=== PATIENT | female | born 1945 | race Caucasian/White ===

== ENCOUNTER → 2016-07-17 | Outpatient (CLI) | payer BC ==
[~2016-07-17] MED LIST: ESCI1TAB6 PO; MXZUNK
== END | disposition home or self-care (01) ==
LOC: C.LAB 14:54
PROVIDERS: ATTEND Family Medicine
DX: E03.9 Hypothyroidism, unspecified (principal)

== ENCOUNTER → 2016-12-22 | Outpatient (CLI) | payer BC ==
--- NOTE | 2016-12-22 13:32 | DIAGNOSTIC IMAGING REPORT ---
CHEST 2 VIEWS ROUTINE CLINICAL HISTORY: Shortness of breath. Chest pain. COMPARISON STUDY: Chest CT March 27, 2014 and chest radiograph December 11, 2015. FINDINGS: Postsurgical findings within the left lung are noted. There are lower cervical surgical clips. No pneumothorax or pleural effusion is present. Cardiomediastinal silhouette is stable. There is no consolidation to suggest pneumonia. Pulmonary vascularity is normal. The appearance of the chest is unchanged. IMPRESSION: No acute cardiopulmonary findings. Electronically signed by: Colt Woodard M.D. 12/22/2016 1:31 PM Dictated Date/Time: 12/22/2016 1:28 PM
== END | disposition home or self-care (01) ==
LOC: C.RADBC 13:12
PROVIDERS: ATTEND Family Medicine
DX: R06.02 Shortness of breath (principal); R07.9 Chest pain, unspecified

== ENCOUNTER → 2017-01-18 | Outpatient (CLI) | payer BC | END | disposition home or self-care (01) | LOC: C.LAB 12:07 | PROVIDERS: ATTEND Family Medicine | DX: E03.9 Hypothyroidism, unspecified (principal) ==

== ENCOUNTER → 2017-02-25 | Outpatient (CLI) | payer BC | END | disposition home or self-care (01) | LOC: C.MAMM 14:01 | PROVIDERS: ATTEND Family Medicine | DX: M81.0 Age-related osteoporosis without current pathological fracture (principal); M85.88 Other specified disorders of bone density and structure, other site ==

== ENCOUNTER → 2017-03-10 | Outpatient (CLI) | payer BC ==
--- NOTE | 2017-03-11 12:45 | MAMMOGRAPHY REPORT ---
BILATERAL DIGITAL SCREENING MAMMOGRAM TOMOSYNTHESIS WITH CAD: 03/10/2017 CLINICAL HISTORY: Routine screening. TECHNIQUE: Breast tomosynthesis in addition to standard 2D mammography was performed. Current study was also evaluated with a Computer Aided Detection (CAD) system. COMPARISON: Comparison is made to exams dated: 12/24/2015 mammogram, 07/04/2014 mammogram, 01/05/2013 mammogram, 07/19/2014 mammogram, 04/24/2015 mammogram, and 04/21/2005 mammogram - [facility]. BREAST COMPOSITION: There are scattered areas of fibroglandular density in both breasts. FINDINGS: There is a 4.9 mm nodular asymmetry in the slightly medial anterior left breast, best seen on CC tomosynthesis slice 41/63. Although this could represent normal overlapping fibrolandular tis naga, additional spot compression tomosynthesis views and possible ultrasound are recommended. The grouping of smooth coarse calcifications measuring 10 mm in the 12:00 to 1:00 posterior right jacob ast appears stable mammographically dating back to at least 04/24/2015 and can be reassessed at time of next annual mammogram. No other suspicious mass, architectural distortion or cluster of microcalci fications is seen. IMPRESSION: ACR BI-RADS CATEGORY 0: INCOMPLETE EVALUATION: NEED ADDITIONAL IMAGING EVALUATION 1. The 4.9 mm nodular asymmetry in the slightly lateral anterior left breast needs additional imagin g evaluation. 2. Stable grouping of coarse heterogeneous microcalcifications in the 12:00 to 1:00 posterior right breast. The patient will be called to schedule an appointment. Approximately 10% of breast cancers are not detected with mammography. A negative mammographic report should not delay biopsy if a clinically suggestive mass is present. Carley Rosas M.D. ay/:03/10/2017 15:22:34 Mail Sorter And Delivery: Nalini BARTHOLOMEW([place])(Es), [facility] letter sent: Addl Imaging 0 BI-RADS Code: ACR BI-RADS Category 0: Incomplete Evaluation: Need Additional Imaging Evaluation
== END | disposition home or self-care (01) ==
LOC: C.MAMM 13:46
PROVIDERS: ATTEND Family Medicine
DX: Z12.31 Encounter for screening mammogram for malignant neoplasm of breast (principal)

== ENCOUNTER → 2017-03-24 | Outpatient (CLI) | payer BC ==
--- NOTE | 2017-03-24 15:10 | MAMMOGRAPHY REPORT ---
UNILATERAL LEFT DIGITAL DIAGNOSTIC MAMMOGRAM TOMOSYNTHESIS: 03/24/2017 CLINICAL HISTORY: Callback from screening mammogram for left breast asymmetry. TECHNIQUE: Breast tomosynthesis in addition to standard 2D mammography was performed. Spot compress ion left CC and MLO 2-D and tomosynthesis images were obtained. COMPARISON: Comparison is made to exams dated: 03/10/2017 mammogram, 12/24/2015 mammogram, 07/04/2014 m ammogram, 01/05/2013 mammogram, 04/21/2005 mammogram, and 02/27/2004 mammogram - [facility]. BREAST COMPOSITION: There are scattered areas of fibroglandular density in the left breast. FINDINGS: The previously described nodular asymmetry seen within the left lateral anterior breast on the cc view effaces to a baseline appearance on the additional spot compression views, and has the ap pearance of normal fibroglandular tissue on the tomosynthesis images. The finding is benign and comp atible with normal fibroglandular tissue. There are no suspicious masses, calcifications, or areas o f architectural distortion noted on the additional views. IMPRESSION: ACR BI-RADS CATEGORY 2: BENIGN The left breast asymmetry effaces on the additional views, and is benign and compatible with normal f ibroglandular tissue. There is no mammographic evidence of malignancy. A 1 year screening mammogram is recommended. The patient has been verbally notified of the results. Approximately 10% of breast cancers are not detected with mammography. A negative mammographic report should not delay biopsy if a clinically suggestive mass is present. Ofelia Cuba M.D. ah/:03/24/2017 13:40:17 Language Interpreter: Nalini BARTHOLOMEW([place])(M), [facility] letter sent: Normal 1/2 BI-RADS Code: ACR BI-RADS Category 2: Benign
== END | disposition home or self-care (01) ==
LOC: C.MAMM 13:08
PROVIDERS: ATTEND Family Medicine
DX: R92.2 Inconclusive mammogram (principal)

== ENCOUNTER → 2017-07-29 | Outpatient (CLI) | payer BC | END | disposition home or self-care (01) | LOC: C.LAB 15:04 | PROVIDERS: ATTEND Family Medicine | DX: E55.9 Vitamin D deficiency, unspecified (principal); E03.9 Hypothyroidism, unspecified ==

== ENCOUNTER 2018-12-14 16:27 | Observation (INO) ==
--- NOTE | 2018-12-14 17:25 | XRay Report ---
XR chest 1V portable CLINICAL HISTORY: 73 years-old Female presenting with weakness. TECHNIQUE: Portable upright AP view of the chest was obtained. COMPARISON: 08/08/2018. FINDINGS: Atherosclerosis of the aortic arch. Cardiac silhouette mildly enlarged. Suture margin is projected ov er the left mid lung. Lungs are mildly hyperinflated. No new focal opacity. No pleural effusion or pn eumothorax. Osteopenia may be present. Upper abdomen normal. IMPRESSION: 1. Mild cardiomegaly. 2. Postsurgical changes of the right midlung. 3. Possible underlying emphysema. No focal infiltrate to suggest pneumonia. Electronically signed by: Carlos Gant M.D. 12/14/2018 5:24 PM
[2018-12-14 17:39] LABS: Basophils # (auto) 0.03 K/uL (0-0.2); Basophils % (auto) 0.4 %; Eosinophils # (auto) 0.05 K/uL (0-0.5); Eosinophils % (auto) 0.6 %; Hematocrit (blood only) 42.3 % (37-47); Hemoglobin 14.4 g/dL (12.0-16.0); Immature Granulocytes # (auto) 0.02 K/uL (0.00-0.02); Immature Granulocytes % (auto) 0.2 %; Lymphocytes # (auto) 2.44 K/uL (1.2-3.4); Lymphocytes % (auto) 30.1 %; Mean Corpuscular Hemoglobin 29.3 pg (25-34); Mean Platelet Volume 9.6 fL (7.4-10.4); Monocytes # (auto) 0.64 K/uL (0.11-0.59); Monocytes % (auto) 7.9 %; Neutrophils # (auto) 4.92 K/uL (1.4-6.5); Neutrophils % (auto) 60.8 %; Platelet Count 357 K/uL (130-400); RDW Coefficient of Variation 13.7 % (11.5-14.5); RDW Standard Deviation 43.1 fL (36.4-46.3); Red Blood Count 4.92 M/uL (4.2-5.4)
--- NOTE | 2018-12-14 17:44 | CT Scan Report ---
CT head/brain wo con CLINICAL HISTORY: 73 years-old Female presenting with aphasia, transient. TECHNIQUE: Multidetector CT imaging of the head was performed without the use of intravenous contrast . IV contrast: None. One or more dose lowering techniques were used consistent with the principles of ALARA (as low as reasonably achievable), including automatic exposure control, mA or kV adjustment t o individual patient size, and/or use of iterative reconstruction. COMPARISON: Brain MR from 2011. CT DOSE (mGy.cm): The estimated cumulative dose is 537.48 mGy.cm. FINDINGS: Raised Printer topogram: Unremarkable. Ventricles and sulci normal in size. No hemorrhage. Periventricular and subcortical white matter hypo attenuation, nonspecific but likely indicative of chronic small vessel ischemic change. No acute terr itorial infarct. No mass effect or midline shift. No extra-axial fluid collection. Paranasal sinuses and mastoid air cells clear. Calvarium intact. IMPRESSION: 1. Chronic small vessel ischemic change. No acute intracranial abnormality. These findings were discussed with charge nurse by Dr. Gant on 12/14/2018 5:43 PM. Electronically signed by: Carlos Gant M.D. 12/14/2018 5:43 PM
[2018-12-14 17:54] LABS: Partial Thromboplastin Ratio 1.2; Partial Thromboplastin Time 32.1 Seconds (21.0-31.0); Prothrombin Time 10.3 Seconds (9.0-12.0)
[2018-12-14 17:55] LABS: Alanine Aminotransferase 16 U/L (12-78); Albumin Level 4.1 gm/dl (3.4-5.0); Aspartate Aminotransferase 11 U/L (15-37); BUN Creatinine Ratio 15.4 (10-20); Blood Urea Nitrogen 17 mg/dl (7-18); Calcium 8.5 mg/dl (8.5-10.1); Carbon Dioxide 30 mmol/L (21-32); Chloride 100 mmol/L (98-107); Creatinine Clr Calc Pharmacy 43.4 ml/min; Est GFR (African American) 55.1; Est GFR (Non-African American) 47.5; Glucose 107 mg/dl (70-99); Magnesium 2.4 mg/dl (1.8-2.4); Potassium 3.2 mmol/L (3.5-5.1); Sodium 136 mmol/L (136-145)
[2018-12-14 18:00] LABS: Albumin Globulin Ratio 1.1 (0.9-2); Alkaline Phosphatase 56 U/L (45-117); Bilirubin,Total 0.4 mg/dl (0.2-1); Globulin 3.8 gm/dl (2.5-4.0); Total Protein 7.9 gm/dl (6.4-8.2); Troponin I < 0.015 ng/ml (0-0.045)
[2018-12-14 18:05] LABS: iSTAT Creatinine 1.1 mg/dl (0.6-1.3); iSTAT Ionized Calcium 1.01 mmol/l (1.12-1.32); iSTAT Potassium 3.2 mEq/L (3.3-5.0)
[2018-12-14] MEDS ORDERED: CLOPIDOGREL BISULFATE 300 MG TAB PO STA (18:10)
[2018-12-14 18:15] LABS: Appearance Urine Cloudy (Clear); Bacteria Urine Automated Negative (Negative); Bilirubin Urine Negative (Negative); Blood Urine Negative (Negative); Color Urine Dark Yellow; Epithelial Cell Urine Auto >30 /lpf (0-5); Glucose Urine UA Negative (Negative); Ketones Urine Trace (Negative); Leukocyte Esterase Urine Negative (Negative); Nitrite Urine Negative (Negative); Protein Urine 1+ (Negative); Specific Gravity Urine 1.032 (1.000-1.030); Urobilinogen Urine Negative (Negative); pH Urine 5.5 (4.5-7.5)
[2018-12-14] MEDS: SODIUM CHLORIDE 0.9% 1000ML 1,000 ML IV SCH (18:25)
[2018-12-14 18:28] LABS: Cast Urine Automated >30 /lpf (0-5)
[2018-12-14 18:29] LABS: Renal Epithelial Cells Urine 0-5 /lpf (0-5)
[2018-12-14] MEDS ORDERED: HydrALAZINE HCL 20 MG/ML VIAL IV ONE (18:42)
--- NOTE | 2018-12-14 19:05 | Emergency Department Note ---
Entered by Nati Perales acting as a scribe for History of Present Illness General Chief complaint: Neuro Symptoms/Deficit Stated complaint: SLURRED SPEECH Source: patient History of Present Illness Onset (ago): hour(s) (1 hour and 15 minutes) Location: head Pain Consistency: + other (episode) Quality: + other (neurological symptoms) Relieved By: + medication (Aspirin) Associated symptoms: + denies other symptoms (dizziness, vision changes, difficulty walking, cold symptoms, trouble moving, numbness, facial droop, trouble swallowing) and + other (slurred speech, slow speech, dry mouth); no chest pain, no fever/chills (fever), no headaches, no shortness of breath and no weakness The patient is a 73 year old female who presents to the Emergency Room with complaints of an episode of neurological symptoms starting an hour and 15 minutes ago. The patient states that this afternoon she had gone and visited with friends. She states that she was fine there and when driving home, stopped at [employer] to worm picker a few things. She reports that she was fine until she got home and her daughter came over to pick her up to go somewhere. She states that once her daughter got there, she didnt feel quite herself. She reports that this was at 3:30. She states that she the noticed she could understand what her daughter was saying, but was unable to formulate what she wanted to say easily. She reports that her speech was slurred and slow. She states that the episode lasted 15 minutes and disappeared. She notes that she took a full strength Aspirin and then came in. She notes that she still feels a little off, but her symptoms have not returned. The patient notes that she was taking medications for a UTI that she started 2 weeks ago and finished 3 days ago, but notes that she no longer has any urinary symptoms. The patient complains of a dry mouth, but notes that she had 3 of her 4 parotid glands removed a long time ago when they thought she had cancer. She notes that she used to be on blood pressure medications, but it was good so they took her off of them. The patient denies recent travel, headache, dizziness, vision changes, difficulty walking, fever, cold symptoms, trouble moving, weakness, numbness, facial droop, trouble swallowing, chest pain, shortness of breath, and ever having this before. Home Medications Home Medications Medication Instructions Recorded Confirmed Type levothyroxine 88 mcg PO DAILY 12/14/18 12/14/18 History Allergies Allergy/AdvReac Type Severity Reaction Status Date / Time bacitracin Allergy Unknown FROM Verified 12/14/18 18:23 NEOSPORIN Iodinated Contrast Media Allergy Unknown CT DYE Verified 12/14/18 18:23 iodine Allergy Unknown UNKNOWN Verified 12/14/18 18:23 neomycin Allergy Unknown UNKNOWN Verified 12/14/18 18:23 polymyxin B Allergy Unknown UNKNOWN Verified 12/14/18 18:23 Past Med/Surg History Medical History Collapsed lung HTN (hypertension) Surgical History History of parotid gland removal Family History Other Family history non-contributory Social History Preferred Language: Croatian marital status: / Feels Safe at Home: Yes Smoking Status: Never smoker Review of Systems See HPI for pertinent positives & negatives. and A total of 10 systems reviewed and were otherwise negative Physical Exam Vital Signs Vital Signs - 24 hr 12/14/18 16:30 12/14/18 17:32 12/14/18 17:33 Temperature 36.6 C Temperature Source Oral Sepsis Recent Fever Within 48 Hours No Sepsis New/Unexplained Change in Mental Status No Sepsis Action Taken by Nursing No Action Required Pulse Rate 75 Pulse Rate [Apical] 51 L Pulse Rate from SpO2 Sensor Respiratory Rate 18 14 Respiratory Effort / Characteristics Non-Labored Spontaneous Respiratory Depth Normal Blood Pressure 203/110 H Blood Pressure [Right Arm] 138/78 Blood Pressure Mean 141 Blood Pressure Mean [Right Arm] 98 Blood Pressure Position Sitting Pulse Oximetry 96 96 96 Oxygen Delivery Method Room Air Room Air 12/14/18 18:15 12/14/18 18:30 12/14/18 18:40 Temperature Temperature Source Sepsis Recent Fever Within 48 Hours Sepsis New/Unexplained Change in Mental Status Sepsis Action Taken by Nursing Pulse Rate 63 64 63 Pulse Rate [Apical] Pulse Rate from SpO2 Sensor 63 63 57 L Respiratory Rate 18 18 Respiratory Effort / Characteristics Respiratory Depth Blood Pressure 230/103 H 228/101 H Blood Pressure [Right Arm] Blood Pressure Mean 145 143 Blood Pressure Mean [Right Arm] Blood Pressure Position Pulse Oximetry 98 99 98 Oxygen Delivery Method 12/14/18 18:44 12/14/18 18:50 12/14/18 18:51 Temperature Temperature Source Sepsis Recent Fever Within 48 Hours Sepsis New/Unexplained Change in Mental Status Sepsis Action Taken by Nursing Pulse Rate 63 62 63 Pulse Rate [Apical] Pulse Rate from SpO2 Sensor 63 62 62 Respiratory Rate Respiratory Effort / Characteristics Respiratory Depth Blood Pressure 224/102 H 219/104 H Blood Pressure [Right Arm] Blood Pressure Mean 142 142 Blood Pressure Mean [Right Arm] Blood Pressure Position Pulse Oximetry 99 98 96 Oxygen Delivery Method GENERAL: Awake, alert, in no distress HENT: Normocephalic, atraumatic. Oropharynx unremarkable. EYES: Normal conjunctiva. Sclera non-icteric. PERRL. EOMI. NECK: Supple. No nuchal rigidity. RESPIRATORY: Clear to auscultation. Normal respiratory effort. CARDIAC: Normal rate. Normal rhythm. Extremities warm and well perfused. GI: Soft, non-distended. No tenderness to palpation. RECTAL: Deferred. MUSCULOSKELETAL: Atraumatic. Chest examination reveals no tenderness. LOWER EXTREMITIES: Calves are equal size bilaterally and non-tender. No edema NEURO: Normal sensorium. No sensory or motor deficits noted. No facial droop. No aphasia. No pronator drift. No finger to nose ataxia. Cranial nerves 2-10 are grossly intact. SKIN: Warm and dry. No rash or jaundice noted. Course 164: Past medical records reviewed. The patient was evaluated in room C11B. A complete history and physical exam was performed. 172: Nursing staff called and informed me that the patient is having an episode. I returned to the room and the patient has a right sided facial droop, aphasia, is pale, and is diaphoretic. I am calling a stroke alert at this time. 1729: I discussed the patient's case with Dr. Ian Carroll Neurology. He will evaluate the patient via telestroke. 1743: I reevaluated the patient and she is being evaluated by the telestroke. The patient is starting to have resolution of her symptoms. 1749: Per radiology, the patient's CT is normal. 1810: I discussed the patient's case with Dr. Ian Carroll Neurology at this time. He doesn't recommend TPA, but does recommend giving Aspirin and Plavix. He recommends admission for further evaluation. 1822: I discussed the patient's case with Dr. Elo TOWNSEND Hospitalist. She will evaluate the patient for further management. 1827: I reevaluated the patient and updated her and her family on her test results. I discussed the treatment plan with them. They verbally agree and understand. Administered Medications Sodium Chloride (Nss 1000ml) 1,000 mls @ 100 mls/hr IV .Q10H ANITA Stop: 01/13/19 18:14 Last Admin: 12/14/18 18:25 Dose: 100 mls/hr Documented by: [id number] Discontinued Medications Clopidogrel Bisulfate (Plavix) 300 mg PO NOW STA Stop: 12/14/18 18:11 Last Admin: 12/14/18 18:25 Dose: 300 mg Documented by: [id number] Hydralazine HCl (Hydralazine Hcl) 5 mg IV NOW ONE Stop: 12/14/18 18:43 Last Admin: 12/14/18 18:47 Dose: 5 mg Documented by: [id number] Medical Decision Making Differential Diagnosis Differential Diagnosis includes but is not limited to ischemic Stroke, hemorrhagic stroke, bells palsy, mass, neoplasm, migraine headache, seizure, subarachnoid hemorrhage, TIA, and transient global amnesia. Medical Records Attestation: I reviewed the patient's medical records. Home Medications Current Medication List: was personally reviewed by me Laboratory Data Attestation: I reviewed the patient's lab results. Result diagrams: 12/14/18 17:29 12/14/18 17:29 Lab Results 12/14/18 12/14/18 12/14/18 Range/Units 17:29 17:29 17:29 WBC 8.10 (4.8-10.8) K/uL RBC 4.92 (4.2-5.4) M/uL Hgb 14.4 (12.0-16.0) g/dL POC Hgb (12.0-16.0) g/dl Hct 42.3 (37-47) % POC Hct (37-47) % MCV 86.0 (80-100) fL MCH 29.3 (25-34) pg MCHC 34.0 (32-36) g/dL RDW Std Deviation 43.1 (36.4-46.3) fL RDW Coeff of Rudy 13.7 (11.5-14.5) % Plt Count 357 (130-400) K/uL MPV 9.6 (7.4-10.4) fL Immature Gran % (Auto) 0.2 % Neut % (Auto) 60.8 % Lymph % (Auto) 30.1 % Blanco % (Auto) 7.9 % Eos % (Auto) 0.6 % Baso % (Auto) 0.4 % Immature Gran # (Auto) 0.02 (0.00-0.02) K/uL Neut # (Auto) 4.92 (1.4-6.5) K/uL Lymph # (Auto) 2.44 (1.2-3.4) K/uL Blanco # (Auto) 0.64 H (0.11-0.59) K/uL Eos # (Auto) 0.05 (0-0.5) K/uL Baso # (Auto) 0.03 (0-0.2) K/uL PT 10.3 (9.0-12.0) Seconds INR 1.0 (0.9-1.1) APTT 32.1 H (21.0-31.0) Seconds PTT Ratio 1.2 POC Sodium (135-144) mEq/L Sodium 136 (136-145) mmol/L POC Potassium (3.3-5.0) mEq/L Potassium 3.2 L (3.5-5.1) mmol/L POC Chloride (101-112) mEq/L Chloride 100 (98-107) mmol/L Carbon Dioxide 30 (21-32) mmol/L POC Total CO2 (24-31) mEq/l Anion Gap 6.0 (3-11) POC Anion Gap (16-25) mmol/L POC BUN (7-18) mg/dl BUN 17 (7-18) mg/dl Creatinine 1.13 (0.6-1.2) mg/dl POC Creatinine (0.6-1.3) mg/dl Est Cr Clr Drug Dosing 43.4 ml/min Est GFR ( Amer) 55.1 Est GFR (Non-Af Amer) 47.5 BUN/Creatinine Ratio 15.4 (10-20) Glucose 107 H (70-99) mg/dl POC Glucose (70-99) POC Glucose (other) (70-99) mg/dl Calcium 8.5 (8.5-10.1) mg/dl POC Ioniz Calcium Sue (1.12-1.32) mmol/l Magnesium 2.4 (1.8-2.4) mg/dl Total Bilirubin 0.4 (0.2-1) mg/dl AST 11 L (15-37) U/L ALT 16 (12-78) U/L Alkaline Phosphatase 56 (45-117) U/L Troponin I < 0.015 (0-0.045) ng/ml Total Protein 7.9 (6.4-8.2) gm/dl Albumin 4.1 (3.4-5.0) gm/dl Globulin 3.8 (2.5-4.0) gm/dl Albumin/Globulin Ratio 1.1 (0.9-2) Urine Color Urine Appearance (Clear) Urine pH (4.5-7.5) Ur Specific Sinai (1.000-1.030) Urine Protein (Negative) Urine Glucose (UA) (Negative) Urine Ketones (Negative) Urine Blood (Negative) Urine Nitrite (Negative) Urine Bilirubin (Negative) Urine Urobilinogen (Negative) Ur Leukocyte Esterase (Negative) Urine WBC (Auto) (0-5) /hpf Urine RBC (Auto) (0-4) /hpf U Hyaline Cast (Auto) (0-5) /lpf U Epithel Cells (Auto) (0-5) /lpf Urine Bacteria (Auto) (Negative) Ur Renal Epithelial Cell (0-5) /lpf Granular Casts (0) /lpf Waxy Casts (0) /lpf Blood Type Antibody Screen 12/14/18 12/14/18 12/14/18 Range/Units 17:29 17:40 17:51 WBC (4.8-10.8) K/uL RBC (4.2-5.4) M/uL Hgb (12.0-16.0) g/dL POC Hgb 15.0 (12.0-16.0) g/dl Hct (37-47) % POC Hct 44 (37-47) % MCV (80-100) fL MCH (25-34) pg MCHC (32-36) g/dL RDW Std Deviation (36.4-46.3) fL RDW Coeff of Rudy (11.5-14.5) % Plt Count (130-400) K/uL MPV (7.4-10.4) fL Immature Gran % (Auto) % Neut % (Auto) % Lymph % (Auto) % Blanco % (Auto) % Eos % (Auto) % Baso % (Auto) % Immature Gran # (Auto) (0.00-0.02) K/uL Neut # (Auto) (1.4-6.5) K/uL Lymph # (Auto) (1.2-3.4) K/uL Blanco # (Auto) (0.11-0.59) K/uL Eos # (Auto) (0-0.5) K/uL Baso # (Auto) (0-0.2) K/uL PT (9.0-12.0) Seconds INR (0.9-1.1) APTT (21.0-31.0) Seconds PTT Ratio POC Sodium 139 (135-144) mEq/L Sodium (136-145) mmol/L POC Potassium 3.2 L (3.3-5.0) mEq/L Potassium (3.5-5.1) mmol/L POC Chloride 97 L (101-112) mEq/L Chloride (98-107) mmol/L Carbon Dioxide (21-32) mmol/L POC Total CO2 29 (24-31) mEq/l Anion Gap (3-11) POC Anion Gap 18.0 (16-25) mmol/L POC BUN 18 (7-18) mg/dl BUN (7-18) mg/dl Creatinine (0.6-1.2) mg/dl POC Creatinine 1.1 (0.6-1.3) mg/dl Est Cr Clr Drug Dosing ml/min Est GFR ( Amer) Est GFR (Non-Af Amer) BUN/Creatinine Ratio (10-20) Glucose (70-99) mg/dl POC Glucose (70-99) POC Glucose (other) 105 H (70-99) mg/dl Calcium (8.5-10.1) mg/dl POC Ioniz Calcium Sue 1.01 L (1.12-1.32) mmol/l Magnesium (1.8-2.4) mg/dl Total Bilirubin (0.2-1) mg/dl AST (15-37) U/L ALT (12-78) U/L Alkaline Phosphatase (45-117) U/L Troponin I (0-0.045) ng/ml Total Protein (6.4-8.2) gm/dl Albumin (3.4-5.0) gm/dl Globulin (2.5-4.0) gm/dl Albumin/Globulin Ratio (0.9-2) Urine Color Dark Yellow Urine Appearance Cloudy A (Clear) Urine pH 5.5 (4.5-7.5) Ur Specific Sinai 1.032 H (1.000-1.030) Urine Protein 1+ H (Negative) Urine Glucose (UA) Negative (Negative) Urine Ketones Trace H (Negative) Urine Blood Negative (Negative) Urine Nitrite Negative (Negative) Urine Bilirubin Negative (Negative) Urine Urobilinogen Negative (Negative) Ur Leukocyte Esterase Negative (Negative) Urine WBC (Auto) 5-10 H (0-5) /hpf Urine RBC (Auto) 10-30 H (0-4) /hpf U Hyaline Cast (Auto) >30 H (0-5) /lpf U Epithel Cells (Auto) >30 H (0-5) /lpf Urine Bacteria (Auto) Negative (Negative) Ur Renal Epithelial Cell 0-5 (0-5) /lpf Granular Casts 1-5 H (0) /lpf Waxy Casts 1-5 H (0) /lpf Blood Type O Positive Antibody Screen NEGATIVE 12/14/18 Range/Units 17:51 WBC (4.8-10.8) K/uL RBC (4.2-5.4) M/uL Hgb (12.0-16.0) g/dL POC Hgb (12.0-16.0) g/dl Hct (37-47) % POC Hct (37-47) % MCV (80-100) fL MCH (25-34) pg MCHC (32-36) g/dL RDW Std Deviation (36.4-46.3) fL RDW Coeff of Rudy (11.5-14.5) % Plt Count (130-400) K/uL MPV (7.4-10.4) fL Immature Gran % (Auto) % Neut % (Auto) % Lymph % (Auto) % Blanco % (Auto) % Eos % (Auto) % Baso % (Auto) % Immature Gran # (Auto) (0.00-0.02) K/uL Neut # (Auto) (1.4-6.5) K/uL Lymph # (Auto) (1.2-3.4) K/uL Blanco # (Auto) (0.11-0.59) K/uL Eos # (Auto) (0-0.5) K/uL Baso # (Auto) (0-0.2) K/uL PT (9.0-12.0) Seconds INR (0.9-1.1) APTT (21.0-31.0) Seconds PTT Ratio POC Sodium (135-144) mEq/L Sodium (136-145) mmol/L POC Potassium (3.3-5.0) mEq/L Potassium (3.5-5.1) mmol/L POC Chloride (101-112) mEq/L Chloride (98-107) mmol/L Carbon Dioxide (21-32) mmol/L POC Total CO2 (24-31) mEq/l Anion Gap (3-11) POC Anion Gap (16-25) mmol/L POC BUN (7-18) mg/dl BUN (7-18) mg/dl Creatinine (0.6-1.2) mg/dl POC Creatinine (0.6-1.3) mg/dl Est Cr Clr Drug Dosing ml/min Est GFR ( Amer) Est GFR (Non-Af Amer) BUN/Creatinine Ratio (10-20) Glucose (70-99) mg/dl POC Glucose 94 (70-99) POC Glucose (other) (70-99) mg/dl Calcium (8.5-10.1) mg/dl POC Ioniz Calcium Sue (1.12-1.32) mmol/l Magnesium (1.8-2.4) mg/dl Total Bilirubin (0.2-1) mg/dl AST (15-37) U/L ALT (12-78) U/L Alkaline Phosphatase (45-117) U/L Troponin I (0-0.045) ng/ml Total Protein (6.4-8.2) gm/dl Albumin (3.4-5.0) gm/dl Globulin (2.5-4.0) gm/dl Albumin/Globulin Ratio (0.9-2) Urine Color Urine Appearance (Clear) Urine pH (4.5-7.5) Ur Specific Sinai (1.000-1.030) Urine Protein (Negative) Urine Glucose (UA) (Negative) Urine Ketones (Negative) Urine Blood (Negative) Urine Nitrite (Negative) Urine Bilirubin (Negative) Urine Urobilinogen (Negative) Ur Leukocyte Esterase (Negative) Urine WBC (Auto) (0-5) /hpf Urine RBC (Auto) (0-4) /hpf U Hyaline Cast (Auto) (0-5) /lpf U Epithel Cells (Auto) (0-5) /lpf Urine Bacteria (Auto) (Negative) Ur Renal Epithelial Cell (0-5) /lpf Granular Casts (0) /lpf Waxy Casts (0) /lpf Blood Type Antibody Screen Imaging Data Radiologist's Impression: Radiology results as stated below per my review and the radiologist's interpretation: XR chest 1V portable CLINICAL HISTORY: 73 years-old Female presenting with weakness. TECHNIQUE: Portable upright AP view of the chest was obtained. COMPARISON: 08/08/2018. FINDINGS: Atherosclerosis of the aortic arch. Cardiac silhouette mildly enlarged. Suture margin is projected over the left mid lung. Lungs are mildly hyperinflated. No new focal opacity. No pleural effusion or pneumothorax. Osteopenia may be present. Upper abdomen normal. IMPRESSION: 1. Mild cardiomegaly. 2. Postsurgical changes of the right midlung. 3. Possible underlying emphysema. No focal infiltrate to suggest pneumonia. Electronically signed by: Carlos Gant M.D. 12/14/2018 5:[address] head/brain wo con CLINICAL HISTORY: 73 years-old Female presenting with aphasia, transient. TECHNIQUE: Multidetector CT imaging of the head was performed without the use of intravenous contrast. IV contrast: None. One or more dose lowering techniques were used consistent with the principles of ALARA (as low as reasonably achievable), including automatic exposure control, mA or kV adjustment to individual patient size, and/or use of iterative reconstruction. COMPARISON: Brain MR from 2011. CT DOSE (mGy.cm): The estimated cumulative dose is 537.48 mGy.cm. FINDINGS: He[employer] Setter topogram: Unremarkable. Ventricles and sulci normal in size. No hemorrhage. Periventricular and subcortical white matter hypoattenuation, nonspecific but likely indicative of chronic small vessel ischemic change. No acute territorial infarct. No mass effect or midline shift. No extra-axial fluid collection. Paranasal sinuses and mastoid air cells clear. Calvarium intact. IMPRESSION: 1. Chronic small vessel ischemic change. No acute intracranial abnormality. These findings were discussed with charge nurse by Dr. Gant on 12/14/2018 5:43 PM. Electronically signed by: Carlos Gant M.D. 12/14/2018 5:43 PM ECG Data Attestation: I personally reviewed and interpreted this ECG as follows: Indication: other (neurological symptoms) Rate (beats per minute): 63 Rhythm: sinus rhythm Findings: + other (normal intervals) and + PVC; no ST depression and no ST elevation Blood Pressure Blood Pressure Findings: Elevated blood pressure Blood Pressure Disposition: further management by hospitalist [place] Narrative Patient is a 73-year-old female with a history of distant hypertension and pneumothorax presenting today after an episode about 50 minutes of aphasia around 330. Was at home and daughter checked on her and she is having difficulty getting words out. This is resolved. Came here for further evaluation. No recent URIs or trauma.. No fevers reported. Recently completed a course of ciprofloxacin for UTI. Patient undergoing evaluation here for TIA with EKG laboratory studies chest x-ray and CT the head. Around 525pm alerted that over the last 5 minutes the patient had significant worsening; now with some diaphoresis and aphasia as well as a new right-sided facial droop on my exam. Patient was made a stroke alert. Discussed with stroke neurology. Patient already took full dose aspirin prior to arrival today. Patient has anaphylactic reaction to IV dye limiting CT studies at this time. Patient taken a stroke alert CT upon returning had improvement of symptoms. CTH w/o acute infarct. TPA was mixed but not given as patient clinically had improvement. Loaded with Plavix per stroke. Patient with improvement. Start on maintenance IV fluids. MRI/MRA to be completed as an inpatient. Discussed with the hospitalist. Blood pressure of 220 and given a very small amount of hydralazine given her heart rate of 64 and blood pressure greater than 220. Impression & Plan TIA (transient ischemic attack), HTN (hypertension) Critical Care Time Critical Care Time: Yes Total Critical Care Time: 37 I have personally spent 37 minutes of critical care time in the direct management of this patient. This includes bedside care, interpretation of diagnostic studies, and testing, discussion with consultants, patient, and family members, and other required patient management activities. This 37 minutes is in excess of all separately billable procedures. Discharge Plan Visit Data Chief Complaint: Neuro Symptoms/Deficit Stated Complaint: SLURRED SPEECH ED Provider: Dave Howell Discharge Problem: TIA (transient ischemic attack), HTN (hypertension) Patient Disposition: Being Evaluated by Hospitalist Forms Stand Alone Forms: [facility] Prescriptions Prescriptions: No Action levothyroxine 88 mcg tablet 88 mcg PO DAILY RF: 0 Referrals Referrals: Jean Hoff [Primary Care Provider] - Discharge Problem: HTN (hypertension) Qualifiers: Hypertension type: unspecified Qualified Code(s): I10 - Essential (primary) hypertension The scribe's documentation has been prepared under my direction and personally reviewed by me in its entirety. I confirm that the note above accurately reflects all work, treatment, procedures, and medical decision making performed by me.
[2018-12-14] MEDS ORDERED: METOPROLOL TARTRATE 1 MG/ML VIAL IV STA (19:42)
[2018-12-14] MEDS ORDERED: METOPROLOL TARTRATE 1 MG/ML VIAL IV ONE (19:43)
--- NOTE | 2018-12-14 19:46 | History & Physical Report ---
Date of Service December 14, 2018 Assessment & Plan (1) TIA (transient ischemic attack): 73-year-old female history of depression, hypothyroidism status post thyroidectomy, Xpbj-Ousv-Gwld syndrome, hypertension presents with aphasia. Patient is a positive family history of stroke in her mother and sister. TIA Risk factors include hypertension, positive family history CT shows chronic small vessel changes MRA of the head and neck ordered, patient allergic to contrast Neurology consulted per hospital protocol, appreciate recommendations Loaded with Plavix in the ED, continue daily Plavix 75 mg ABDCD2 score of 3, no indication to start dual antiplatelet therapy -Follow Lipids and HgbA1c Hypertension Permissive hypertension Okay to give Lopressor for pressures greater than 180 systolic No home meds Kevin-Juan Rufina Syndrome, hypothyroid s/p parotidectomy and thyroidectomy Continue levothyroxine Depression No home medications at this time DVT ppx--SCD's ambulate Code status--Full code FEN--Heart healthy (2) HTN (hypertension): (3) Hypothyroid: (4) Tytt-Kcqw-Tyma syndrome: (5) Depression: History of Present Illness Primary Care Provider: Jean Hoff 73-year-old female history of depression, hypothyroidism status post thyroidectomy, Ligu-Avei-Vtbi syndrome, hypertension presents with aphasia. Patient states that her symptoms began around 330 today after she got home from her psychiatry appointment. Her daughter noticed that she seemed confused, anxious and was unable to articulate words. She said her speech was slurred. The patient reports preserved functional capacitywas able to walk around, getting her car and she understood what was going on but could not find the words to say. She denies any loss of consciousness or any other focal neuro deficits. The symptoms resolved on the way to the emergency room but recurred while being evaluated in the ED. The patient has a diagnosis depression, but is not currently taking any medications. She went off of Zoloft 1 year ago. In addition, the patient was previously treated for hypertension, but stopped her medications around the same time. Patient has a family history of a stroke in her mother and her sister. She denies a history of smoking. She denies a history of diabetes or hyperlipidemia. Allergies Allergy/AdvReac Type Severity Reaction Status Date / Time bacitracin Allergy Unknown FROM Verified 12/14/18 18:23 NEOSPORIN Iodinated Contrast Media Allergy Unknown CT DYE Verified 12/14/18 18:23 iodine Allergy Unknown UNKNOWN Verified 12/14/18 18:23 neomycin Allergy Unknown UNKNOWN Verified 12/14/18 18:23 polymyxin B Allergy Unknown UNKNOWN Verified 12/14/18 18:23 Home Medications Home Medications Medication Instructions Recorded Confirmed Type levothyroxine 88 mcg PO DAILY 12/14/18 12/14/18 History Past Med/Surg History Medical History Collapsed lung HTN (hypertension) Surgical History History of parotid gland removal Family History Other Family history non-contributory Social History Preferred Language: Spanish Communication Ability: Effective 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 Beliefs That Will Affect Care: None marital status: / Current Living Situation: Alone Other Information That Helps Us Care for You: No Feels Safe at Home: Yes Safety Concerns: Feels Safe At This Time Smoking Status: Never smoker Hx Alcohol Use: No Hx Substance Use: Yes substance use type: marijuana Last Used Substance Other:: Wednesday (Edible Brownie) Review of Systems Constitutional: no fever, no chills and no sweats Eyes: no blind spots and no loss of peripheral vision Ear, Nose, Mouth, Throat: no hearing loss, no nasal congestion and no sinus pain/pressure Respiratory: no cough, no dyspnea and no wheezing Cardiovascular: no chest pain, no palpitations and no edema Gastrointestinal: no abdominal pain, no nausea and no vomiting Genitourinary: no dysuria, no urinary frequency and no urinary incontinence Neurologic: no gait abnormality, no unsteadiness, no falls, no localized weakness, no paralysis and no loss of sensation Physical Exam Constitutional: WD/WN, vitals as above Eyes: PERRL, conjunctivae normal, anicteric sclerae ENMT: external ear and nose normal, oropharynx normal Neck: trachea midline, no thyromegaly Respiratory: normal respiratory effort, lungs clear to auscultation Cardiovascular: RRR, no murmur, no edema Gastrointestinal (Abdomen): normal bowel sounds, soft, nontender, no hepatosplenomegaly Musculoskeletal: no cyanosis or clubbing, extremities motor strength 5/5 Skin: no rashes, warm and dry Neurologic: PERRL, EOMI, accommodation nl, no face palsy, no dysarthria Psychiatric: A+Ox3, euthymic affect Results & Data Vital Signs (Past 12 Hours) Vital Signs Temp Pulse Pulse Resp BP BP Pulse Ox 12/14/18 19:32 82 12/14/18 19:25 195/108 H 12/14/18 19:20 79 223/112 H 98 12/14/18 19:15 75 202/125 H 99 12/14/18 19:10 73 217/117 H 98 12/14/18 19:07 79 99 12/14/18 19:06 73 218/98 H 99 12/14/18 19:00 66 182/98 H 98 12/14/18 18:55 65 198/104 H 98 12/14/18 18:51 63 96 12/14/18 18:50 62 219/104 H 98 12/14/18 18:44 63 224/102 H 99 12/14/18 18:40 63 98 12/14/18 18:30 64 18 228/101 H 99 12/14/18 18:15 63 18 230/103 H 98 12/14/18 17:33 96 12/14/18 17:32 51 L 14 138/78 96 12/14/18 16:30 36.6 C 75 18 203/110 H 96 Code Status & VTE Plan VTE Prophylaxis Plan VTE Prophylaxis will be ordered: Yes Supervising Physician Co-Signing Physician Notes Patient seen and examined, chart reviewed, case discussed wt Dr. Miller and I agree with his assessment and plan as documented above. Briefly, patient presents with transient dysphagia, word finding difficulty. Symptoms now resolved Exam with elevated blood pressure, otherwise normal HEENT - NC/AT, PERRL, MMM, neck supple Heart - +S1/S2, regular, no m/r/g Lungs - CTA Abd - +BS, soft, NT/ND Ext - no edema Neuro - AA&O x 4, speech clear, no facial droop, CN II - XII grossly intact, sensation to light touch intact, MS 5/5 bialterally, no pronator drift, c oordination intact Labs and images reviewed. Correction - patient with surgery on LEFT lung Assessment/Plan: Concern for TIA in setting of poorly controlled HTN -MRI/MRA, Neurology consult per protocol appreciated -Plavix -Permissive HTN, goal 180mmHg -Remainder of plan as above PG Care Time/CCT Total # of Minutes Spent Total Time Spent with Patient: Total time spent is greater than 50% in coordination of care (as documented) at patient's floor/unit and/or counseling patient: Resident Activity Tracking Resident Involvement: Resident Care Provided Care Provided: Adult Hospital Medicine (1) HTN (hypertension) Hypertension type: unspecified Qualified Code(s): I10 - Essential (primary) hypertension
[2018-12-14] MEDS ORDERED: PHARMACIST DISCHARGE MED REC CONSULT PRN (20:26)
[2018-12-14] MEDS ORDERED: ACETAMINOPHEN 325 MG TAB PO PRN (20:26)
[2018-12-14] MEDS ORDERED: ONDANSETRON INJ 2 MG/ML 2 ML VIAL IV PRN (20:26)
[2018-12-14] MEDS ORDERED: METOPROLOL TARTRATE 1 MG/ML VIAL IV PRN (20:26)
[2018-12-14] MEDS ORDERED: POLYETHYLENE (MIRALAX) 17 GM PACK PO PRN (20:26)
[2018-12-14] MEDS ORDERED: LORazepam 0.25 MG/0.5 ML VIAL IV PRN (21:47)
[2018-12-14] MEDS ORDERED: POTASSIUM CHLORIDE 10 MEQ TABCR PO STA (21:51)
[2018-12-15] MEDS ORDERED: GADOBUTROL 65ML VIAL IV PRN (00:07)
[2018-12-15] MEDS ORDERED: LEVOTHYROXINE SODIUM 88 MCG TABLET PO SCH (06:30)
[2018-12-15 06:32] LABS: Basophils # (auto) 0.03 K/uL (0-0.2); Basophils % (auto) 0.4 %; Eosinophils # (auto) 0.06 K/uL (0-0.5); Eosinophils % (auto) 0.8 %; Hematocrit (blood only) 39.8 % (37-47); Hemoglobin 13.5 g/dL (12.0-16.0); Immature Granulocytes # (auto) 0.02 K/uL (0.00-0.02); Immature Granulocytes % (auto) 0.3 %; Lymphocytes # (auto) 2.49 K/uL (1.2-3.4); Lymphocytes % (auto) 32.9 %; Mean Corpuscular Hemoglobin 29.3 pg (25-34); Mean Corpuscular Hgb Conc 33.9 g/dL (32-36); Mean Corpuscular Volume 86.5 fL (80-100); Mean Platelet Volume 9.4 fL (7.4-10.4); Monocytes # (auto) 0.71 K/uL (0.11-0.59); Monocytes % (auto) 9.4 %; Neutrophils # (auto) 4.26 K/uL (1.4-6.5); Neutrophils % (auto) 56.2 %; Platelet Count 323 K/uL (130-400); RDW Coefficient of Variation 13.9 % (11.5-14.5); RDW Standard Deviation 43.5 fL (36.4-46.3); White Blood Count 7.57 K/uL (4.8-10.8)
[2018-12-15] MEDS: SODIUM CHLORIDE 0.9% 1000ML 1,000 ML IV SCH (06:42)
--- NOTE | 2018-12-15 06:50 | Magnetic Resonance Report ---
MR ANGIOGRAPHY OF THE [place] NO CONTRAST CLINICAL HISTORY: dysphasia, stroke workup COMPARISON STUDY: None. A 3-D [id number] MR angiographic sequence of the [place] was performed. Both the source and projection images were reviewed. There is no evidence of major intracranial branch occlusion. There are no lesions suspicious for aneu rysm. There are areas intracranial atherosclerotic disease with foci of mild atherosclerotic narrowin g most pronounced in the posterior cerebral arteries. IMPRESSION: 1. Evidence of mild intracranial atherosclerotic disease 2. No evidence of major intracranial branch occlusion 3. No evidence of aneurysm Electronically signed by: Navid Amador M.D. 12/15/2018 6:49 AM
--- NOTE | 2018-12-15 06:57 | Magnetic Resonance Report ---
MR angio neck wo/w con CLINICAL HISTORY: 73 years-old Female presenting with possible stroke, slurred speech episodes in the afternoon, hypertension. TECHNIQUE: MR angiography of the neck was performed before and after the administration of intravenou s contrast. 3-D volumetric and/or maximum intensity projection (MIP) images were subsequently reconst ructed for review. IV contrast: 6.8 mL of Gadavist. Stenosis measurements were based on NASCET-like c riteria (distal lumen diameter as the denominator for stenosis measurement). COMPARISON: Carotid Doppler ultrasound from 2011. FINDINGS: Localizer images: Unremarkable. Aortic arch: Atherosclerosis of the three-vessel aortic arch. Innominate artery: Patent. Right subclavian artery: Patent. Right common carotid artery: Patent. Right internal and external carotid arteries: Mild irregularity at the carotid bifurcation likely mil d atherosclerotic plaque. No significant narrowing of the origins or courses of the internal and exte rnal carotid arteries. Left common carotid artery: Patent. Left internal and external carotid arteries: Mild irregularity at the carotid bifurcation likely mild atherosclerotic plaque. No significant narrowing of the origins or courses of the internal and exter nal carotid arteries. Left subclavian artery: Patent. Vertebral arteries: Left dominant vertebral artery. Origins and courses of the bilateral vertebral ar teries patent. Other: Limited intracranial evaluation within normal limits. Soft tissues of the neck normal allowing for the phase of contrast. IMPRESSION: 1. No dissection, significant stenosis, or focal vessel occlusion. Electronically signed by: Carlos Gant M.D. 12/15/2018 6:56 AM
[2018-12-15 07:25] LABS: BUN Creatinine Ratio 16.9 (10-20); Calcium 7.6 mg/dl (8.5-10.1); Creatinine Clr Calc Pharmacy 52.7 ml/min; Est GFR (African American) 69.7; Est GFR (Non-African American) 60.1; Potassium 3.8 mmol/L (3.5-5.1)
--- NOTE | 2018-12-15 08:01 | Magnetic Resonance Report ---
MRI OF THE BRAIN WITHOUT IV CONTRAST CLINICAL HISTORY: Strokelike symptoms. Slurred speech. COMPARISON STUDY: CT of the brain dated 12/14/2018. MRI of the brain dated 01/19/2012. TECHNIQUE: MRI of the brain was performed utilizing various T1 and T2-weighted sequences in the axial , sagittal, and coronal planes. IV contrast was not administered for this examination. The examinatio n is compromised by motion artifact. FINDINGS: Brain parenchyma: There is age-related involutional change noting advanced confluent T2 signal abnorm ality throughout the subcortical and periventricular white matter. Several lesions involve the corpus callosum. There is no hemorrhage or mass effect. There is no restricted diffusion typical for acute ischemia. A subcentimeter focus of apparent restricted diffusion in the high left frontal white matte r likely represents T2 shine through. Gmabino-white matter differentiation is preserved. No extra-axial fluid collection is seen. The cerebellar tonsils are normal in configuration. Ventricles, sulci, and cisterns: Prominent secondary to involutional change. Pituitary and sella: Unremarkable. Intracranial vasculature: Normal flow voids are maintained at the skull base. Orbits: The bony orbits are grossly intact. Orbital contents are normal in appearance. Sinuses and mastoids: Clear. Calvarium: Unremarkable. Cervical cord: Partially visualized cervical spinal cord is normal in morphology and signal intensity . IMPRESSION: 1. No acute intracranial abnormality is identified. 2. 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 Electronically signed by: Adair Espinoza M.D. 12/15/2018 8:00 AM
[2018-12-15 08:14] LABS: Estimated Average Glucose 120 mg/dl; Hemoglobin A1C 5.8 % (4.5-5.6)
[2018-12-15] MEDS ORDERED: CLOPIDOGREL BISULFATE 75 MG TAB PO SCH (09:00)
--- NOTE | 2018-12-15 09:08 | Neurology Consultation ---
Date of Consultation December 15, 2018 Assessment & Plan (1) Expressive aphasia: (2) TIA (transient ischemic attack): (3) Chronic cerebral ischemia: (4) Vascular dementia: (5) HTN (hypertension): (6) Hypothyroid: The patient 2 brief (15 minutes) episodes of expressive aphasia December 14. Currently she has no speech abnormalities, focal neurologic findings, meningeal signs, or encephalopathy. MRI of the brain shows no acute stroke but extensive/advanced small vessel ischemic disease (progressed compared to the previous study of 2011). Overall, this is consistent with a transient ischemic attack secondary to small vessel ischemic disease. There was no evidence of hemorrhage. MR angiography of the head neck showed no significant vascular stenoses or anomalies. Her risk factors for stroke include , predominantly, hypertension, as well as mild dyslipidemia, mild elevated glucose, and advancing age. Patient has a mild vascular dementia from her chronic cerebral ischemia resulting in some short-term memory problems. 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 Patient has a history of hypothyroidism post thyroidectomy with a TSH of 3.6. She continues to have fatigue of a significant nature. Recommendations: 1. Continue the combination of 81 mg aspirin and 75 mg clopidogrel daily for 3 weeks and then stop the aspirin staying on clopidogrel alone. 2. Consider echocardiogram. 3. Control blood pressure as you are doing, aiming for a mean arterial pressure approximately 100. 4. Patient is theoretically a high-dose statin candidate. 5. Controlled glucose trying to lower the hemoglobin A1c to 5.6. 6. Patient would probably benefit from some physical and occupational therapy consult particularly to help her gait. 7. I can follow up as an outpatient, if desired. Overall, I spent a total of 125 minutes with this case including review of records, review of CT and MRI films (with Dr. Espinoza radiology), direct evaluation the patient at bedside, and discussion of the case with patient at bedside, nursing staff at bedside, and Dr. Todd, including differential diagnosis and treatment options. History of Present Illness Reason for Consultation: Patient is a 73-year-old, who I was asked to see the request of Dr. Elia Miller, for neurologic consultation regarding TIA versus stroke. Requesting Physician: Dr. Miller Attending Physician: Sadi Todd History of Present Illness Patient has had a history of hypertension for many years, having had treatment in the past but stopping treatment about a year ago. She did this because she felt that her blood pressure was only intermittently elevated, related to times of stress. In addition, the patient has a history of depression which has been stable off sertraline which she stopped about 1 year ago also. 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 Back in her late 40s she was noted to have parotid gland swelling. 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 She ended up getting bilateral parotidectomies, as well as total thyroidectomy and parathyroidectomy surgery by her early 50s. This was done at [facility]. She has been on Synthroid since. Patient had spontaneous pneumothorax left greater than right side in 2009. She was noted to have pulmonary cyst at that time. In addition, patient has had multiple skin cancer removals including melanoma and other types. She is followed closely by dermatology. Patient saw Dr. Rosas in 2011 for memory issues. Although she had some mild short-term memory problems it was also felt that she was having a pseudo dementia from her depression. MRI of the brain in 2011 showed extensive small vessel ischemic disease of a chronic nature. Apparently he put her on 81 mg aspirin tablet daily I am not sure she took this for very long. She has been on no antiplatelet medication. The patient arose on December 14 feeling well. She had a physician appointment visit some friends in the early afternoon then went to the grocery store. She got home and around 1530 her daughter felt that something was not right with the patient. Apparently the patient could understand her daughter but could not get words out correctly. Her speech was slow and slurred. This lasted about 10-15 minutes and then resolved. She took a 325 mg aspirin tablet. The patient had no vision problems, pain or headache (before during or after), numbness or weakness in the limbs, or balance problems. On December 14 she read to the emergency room at 1630 and had a temperature of 36.6, pulse 75, respiratory 18, blood pressure 203/110, and O2 saturation 96%. When she 1st arrived her neurologic examination was unremarkable with no focal neurologic findings or encephalopathy. Sometime later she had recurrence of the expressive aphasia. A stroke alert was called and the [facility] telestroke doctor was engaged. By the time he saw the patient her symptoms had resolved again. Because of her rapidly resolve symptoms and NIH stroke scale of 0, tPA was not given. CBC and Chem profile were unremarkable (glucose 107). Urinalysis showed some white cells. Chest x-ray showed mild cardiomegaly and some postop changes in her right mid lung CT scan of the head showed old small vessel ischemia. Patient was given a 300 mg loading dose of Plavix has remained on aspirin and clopidogrel. Total cholesterol was 208 and triglycerides 113. TSH was 3.6. Hemoglobin A1c was 5.8 MR angiography of the head and neck were unremarkable with no significant vascular stenoses or anomalies. MRI of the brain was unremarkable for acute stroke. She has extensive old small vessel ischemic disease progressed from 2011. I reviewed these films with Dr. Espinoza, Radiology. This morning the patient feels at her baseline with no speech issues or other problems. She does have considerable fatigue on a chronic basis. Allergies Allergy/AdvReac Type Severity Reaction Status Date / Time bacitracin Allergy Unknown FROM Verified 12/14/18 18:23 NEOSPORIN Iodinated Contrast Media Allergy Unknown CT DYE Verified 12/14/18 18:23 iodine Allergy Unknown UNKNOWN Verified 12/14/18 18:23 neomycin Allergy Unknown UNKNOWN Verified 12/14/18 18:23 polymyxin B Allergy Unknown UNKNOWN Verified 12/14/18 18:23 Home Medications Home Medications Medication Instructions Recorded Confirmed Type levothyroxine 88 mcg PO DAILY 12/14/18 12/14/18 History Patient History Medical History Cywd-Xdxd-Jqpi syndrome Collapsed lung HTN (hypertension) Surgical History H/O parotidectomy History of parotid gland removal S/P parathyroidectomy S/P thyroidectomy S/P tonsillectomy Family History Mother , age 75 of congestive heart failure. Heart disease Stroke Father , age 61 of liver cancer. 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 Feels Safe at Home: Yes Safety Concerns: Feels Safe At This Time Smoking Status: Never smoker Hx Alcohol Use: No Hx Substance Use: Yes substance use type: marijuana Last Used Substance Other:: Wednesday (Edible Brownie) Physical Activity Frequency: 3-4 Times per Week Physical Activity Frequency Comment: Participates in [employer]EDit Review of Systems Constitutional: + fatigue; no fever and no weakness Eyes: no diplopia, no eye pain and no worsening vision Ear, Nose, Mouth, Throat: no ear pain, no tinnitus, no hearing loss, no dizziness, no snoring, no hoarseness and no dysphagia Respiratory: no cough and no dyspnea Cardiovascular: no chest pain, no palpitations and no lightheadedness Gastrointestinal: no abdominal pain, no nausea and no vomiting Genitourinary: no dysuria, no urinary frequency and no urinary incontinence Musculoskeletal: no back pain, no neck pain, no radicular pain, no joint pain and no myalgia Integumentary: + lesions; no rash Neurologic: + memory loss; no gait abnormality, no localized weakness, no generalized weakness, no tingling, no numbness, no tremor(s), no abnormal movements, no headache(s), no abnormal speech and no confusion Psychiatric: + depression and + anxiety; no irritability, no difficulty concentrating, no confusion and no hallucinations Endocrine: + fatigue; no flushing Hematologic / Lymphatic: no easy bleeding and no easy bruising Allergy / Immunological: no urticaria and no problem reported Physical Exam Physical Exam: The patient is right-handed. The patient is awake, alert, and attentive. Speech is normal without any aphasia or dysarthria. She can name objects, repeat phrases, and has normal spontaneous speech. Mentation and thought processes are intact, with orientation to person, place and time, and normal fund of knowledge. Attention and concentration are normal. Mood and affect are normal and appropriate. General appearance and grooming are normal. Short term memory is mildly impaired but long-term memory seems intact. The discs are sharp with positive venous pulsations bilaterally. There are no exudates, hemorrhages, or blood vessel changes seen. Pupils are 3 mm bilaterally and reactive to light. Extraocular eye muscles are intact without nystagmus. Visual acuity and visual streeter seem normal grossly to confrontation. There are no deficits to sensation in the face in all 3 distributions of the fifth cranial nerve bilaterally. Corneal reflexes are positive bilaterally. Facial strength and symmetry was normal bilaterally. Hearing seems normal to whisper and finger rub bilaterally. Palate moves well without asymmetry. There is normal sternocleidomastoid and trapezius (shoulder shrug) strength bilater ally. Tongue is midline with good strength bilaterally. Neck has a full range of motion without discomfort. There are no cervical bruits bilaterally. There are no cranial or ocular bruits. Heart is without murmur. There is a regular rhythm and rate. Cervical, thoracic, and lumbar spine are nontender to palpation. Gait is narrow based, with some arm swing bilaterally. She is somewhat slow and cautious including her turns. Balance is normal eyes open. With outstretched arms there is no drift. There are no resting, postural, or action tremors. There is no ataxia with finger to nose testing. There is good facility in the hands. No other abnormal involuntary movements are noted. Motor strength is 5/5 diffusely in the arms bilaterally including deltoids, biceps, triceps, brachioradialis, wrist flexors and extensors, scorekeeper, and intrinsic hand muscles. Motor strength is 5/5 diffusely in the legs bilaterally including hip flexors, quadriceps, hamstrings, gastrocnemius, tibialis anterior, tibialis posterior, and Peroneii muscles. Toe extensors are normal and there is good bulk in the extensor digitorum brevis muscles bilaterally. The limbs have good tone without rigidity or spasticity. There is no atrophy noted in the muscles. Muscle bulk is normal, there is no tenderness to palpation, no myotonia to percussion, and no fasciculations seen. Sensory examination is intact to touch and pin throughout all 4 limbs diffusely. Reflexes are 1/4 in the biceps, triceps, brachioradialis, quadriceps, and Achilles tendons bilaterally. There is no clonus bilaterally. Toes are downgoing with plantar stimulation bilaterally. I note high arches bilaterally. She does not have hammertoes. Peripheral pulses are present and of normal quality distally in all 4 limbs. There is no peripheral edema noted in the limbs. Results & Data Vital Signs (Past 12 Hours) Vital Signs Temp Pulse Pulse Resp BP Pulse Ox 12/15/18 08:00 36.5 C 65 18 171/90 H 96 12/15/18 04:25 36.5 C 58 L 16 130/81 97 12/15/18 00:13 66 12/15/18 00:09 36.8 C 69 18 198/101 H 98 12/14/18 21:55 68 199/89 H Diagnostic Findings MRI OF THE BRAIN WITHOUT IV CONTRAST CLINICAL HISTORY: Strokelike symptoms. Slurred speech. COMPARISON STUDY: CT of the brain dated 12/14/2018. MRI of the brain dated 01/19/2012. TECHNIQUE: MRI of the brain was performed utilizing various T1 and T2-weighted sequences in the axial, sagittal, and coronal planes. IV contrast was not administered for this examination. The examination is compromised by motion artifact. FINDINGS: Brain parenchyma: There is age-related involutional change noting advanced confluent T2 signal abnormality throughout the subcortical and periventricular white matter. Several lesions involve the corpus callosum. There is no hemorrhage or mass effect. There is no restricted diffusion typical for acute ischemia. A subcentimeter focus of apparent restricted diffusion in the high left frontal white matter likely represents T2 shine through. Gambino-white matter differentiation is preserved. No extra-axial fluid collection is seen. The cerebellar tonsils are normal in configuration. Ventricles, sulci, and cisterns: Prominent secondary to involutional change. Pituitary and sella: Unremarkable. Intracranial vasculature: Normal flow voids are maintained at the skull base. Orbits: The bony orbits are grossly intact. Orbital contents are normal in appearance. Sinuses and mastoids: Clear. Calvarium: Unremarkable. Cervical cord: Partially visualized cervical spinal cord is normal in morphology and signal intensity. IMPRESSION: 1. No acute intracranial abnormality is identified. 2. 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 Electronically signed by: Adair Espinoza M.D. 12/15/2018 8:00 AM PG Care Time/CCT Total # of Minutes Spent Total Time Spent with Patient: Total time spent is greater than 50% in coordination of care (as documented) at patient's floor/unit and/or counseling patient: (1) HTN (hypertension) Hypertension type: unspecified Qualified Code(s): I10 - Essential (primary) hypertension
[2018-12-15] MEDS ORDERED: ATORVASTATIN 40 MG TAB PO SCH (11:15)
[2018-12-15] MEDS ORDERED: STROKE PATIENT DISCHARGE STA (15:18)
--- NOTE | 2018-12-15 15:23 | Discharge Summary ---
Date of Service December 15, 2018 Admission HPI Per Admitting Provider 73-year-old female history of depression, hypothyroidism status post thyroidectomy, Wchr-Hpwx-Wbcm syndrome, hypertension presents with aphasia. Patient states that her symptoms began around 330 today after she got home from her psychiatry appointment. Her daughter noticed that she seemed confused, anxious and was unable to articulate words. She said her speech was slurred. The patient reports preserved functional capacitywas able to walk around, getting her car and she understood what was going on but could not find the words to say. She denies any loss of consciousness or any other focal neuro deficits. The symptoms resolved on the way to the emergency room but recurred while being evaluated in the ED. The patient has a diagnosis depression, but is not currently taking any medications. She went off of Zoloft 1 year ago. In addition, the patient was previously treated for hypertension, but stopped her medications around the same time. Patient has a family history of a stroke in her mother and her sister. She denies a history of smoking. She denies a history of diabetes or hyperlipidemia. Admission Exam Per Admitting Provider Constitutional: WD/WN, vitals as above Eyes: PERRL, conjunctivae normal, anicteric sclerae ENMT: external ear and nose normal, oropharynx normal Neck: trachea midline, no thyromegaly Respiratory: normal respiratory effort, lungs clear to auscultation Cardiovascular: RRR, no murmur, no edema Gastrointestinal (Abdomen): normal bowel sounds, soft, nontender, no hepatosplenomegaly Musculoskeletal: no cyanosis or clubbing, extremities motor strength 5/5 Skin: no rashes, warm and dry Neurologic: PERRL, EOMI, accommodation nl, no face palsy, no dysarthria Psychiatric: A+Ox3, euthymic affect Principal Diagnosis TIA Discharge Exam General: Resting comfortably HEENT: NC/AT; PERRLA with EOMI; Cataract conjunctiva, MMM. No erythema of posterior pharynx Neck: Supple and nontender Cardiac: RRR Lungs: CTA bilaterally Abdomen: Bowel normoactive X 4; Nontender to palpation Extremities: Warm. No edema present Neuro: No focal weakness Skin: No rash Discharge Data Allergies Allergy/AdvReac Type Severity Reaction Status Date / Time bacitracin Allergy Unknown FROM Verified 12/14/18 18:23 NEOSPORIN Iodinated Contrast Media Allergy Unknown CT DYE Verified 12/14/18 18:23 iodine Allergy Unknown UNKNOWN Verified 12/14/18 18:23 neomycin Allergy Unknown UNKNOWN Verified 12/14/18 18:23 polymyxin B Allergy Unknown UNKNOWN Verified 12/14/18 18:23 Consultations 12/14/18 18:11 ED Decision to Admit Stat 12/14/18 20:26 Consult Case Management - Discharge Planning Routine Consult Case Management - Discharge Planning Routine Consult Neurology Routine Ordered Studies 12/14/18 16:57 CT head/brain wo con Stat 12/14/18 20:26 MR angio head wo con Urgent MR angio neck wo/w con Routine 12/14/18 21:33 MR brain wo con Urgent Hospital Course (1) TIA (transient ischemic attack): Risk factors include hypertension, HLD, positive family history. CT head showed chronic small vessel changes. MRA head/neck negative. Neuro consulted, appreciate input. Start Atorvastatin 80 mg PO daily; Lipid panel showed LDL 139, Triglycerides 113. Start Plavix/ASA x 3 weeks then convert to single agent Plavix. 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 F/u PCP as outpatient. (2) HTN (hypertension): BP was elevated, SBP >200, overnight -- SBP now improving. Will start Amlodipine 2.5 mg qhs and Lisinopril 5 mg qAM (per supervising physician Dr. Todd) Will need to discuss continuing 2 anti-hypertensive agents with PCP. (3) HLD (hyperlipidemia): Started high dose statin. F/u with PCP for labs and to discuss side effect management if necessary. (4) Chronic diastolic HF (heart failure): Echo showed EF >65%, hyperdynamic left ventricle with diastolic dysfunction. Pt. likely has compenent of diastolic heart failure. Started Lisinopril at discharge for HTN; consider addition of beta lorna as outpatient. Monitor volume status closely as outpatient -- currently appears well compensated. (5) Hypothyroid: As noted below. (6) Wbsv-Azdw-Lobk syndrome: Continued Levothyroxine at home. TSH was 3.6. (7) Depression: Not currently on meds at home. Discharged to home on 12/15/18. Total Time Total Time Spent Total Time Spent (In Minutes): >30 minutes Total Time Includes: Examination of the Patient, Discharge Planning, Medication Reconciliation, Communication With Other Providers and Other Discharge Plan Discharge Items Patient Disposition: Home - Self-Care Reason For Visit: TIA Discharge Diagnosis: TIA Condition on Discharge: Good Activity: As commented below Exercise/Sports: Gradually increase as tolerated and Wait until after follow-up appointment Non-emergency contact: Primary Care Provider Call non-emergency contact if: you have any medication questions, your symptoms worsen and you have a fever Follow-up/Referrals: Shaq Traylor III, MD [Physician] - 01/31/19 1:45 pm (Please, follow up at [facility] Neurology Office with Dr. Traylor's associate, Lauren Quispe PA-C, on WednesdayJanuary 31 at 2:00 pm (arrive 1:45 pm). *The office is located at [address] [place] [address] in [place]. If you need to change this appointment, call the office at [phone].) Jean Hoff [Primary Care Provider] - 12/21/18 12:15 pm (Please, follow up with Dr. Hoff on WednesdayDecember 21 at 12:15 pm. *If you need to change this appointment, call the office at [phone].) Diet: Carb Consistent or DM2 and Heart Healthy Addtl Attending Provider Instructions: 1. TIA * Please take Plavix 75 mg daily and Aspirin 81 mg daily. You will need to take both medications for 3 weeks; you can d/c Aspirin after 3 weeks and continue single agent Plavix therapy. * Please take Atorvastatin 80 mg daily for elevated cholesterol reading in setting of TIA. * Please continue carbohydrate consistent, heart healthy diet to control blood glucose levels at home. 2. Hypertension * Please take Amlodipine 2.5 mg at bedtime. * Please take Lisinopril 5 mg daily in the morning. * Please monitor blood pressure at home; hold medications if SBP >110. * Prescriptions were sent to your pharmacy. 3. Please follow up with PCP as scheduled on 12/21/18. 4. Please follow up with neurology as scheduled in January 2019. Pending Studies at Discharge: No Stand-Alone Forms: Medications to Prevent Stroke, My [facility] Medications and DC Order Prescriptions: New clopidogrel 75 mg Tablet 75 mg PO QAM 30 Days Qty: 30 RF: 2 atorvastatin 80 mg tablet 80 mg PO QAM 30 Days Qty: 30 RF: 2 amlodipine 2.5 mg tablet 2.5 mg PO HS Qty: 30 RF: 2 lisinopril 5 mg tablet 5 mg PO QAM Qty: 30 RF: 1 Continued levothyroxine 88 mcg tablet 88 mcg PO DAILY RF: 0 No Action aspirin 81 mg Tablet,Delayed Release (Dr/Ec) 81 mg PO DAILY RF: 0 Discharge Orders: Discharge Order (Routine); Ordered 12/15/18 Ordered By: Shireen Jerez Admission Data Admit Date/Time: 12/14/18 19:30 Attending Provider: Sadi Todd Admit Provider: Boone Miller Primary Care Provider: Jean Hoff Other Providers: Ruth Kumar Emile Pierre III Other Interventions: Discharge Summary Assessment (RN) Last Done: 12/15/18 15:28 DC Date/Time DO NOT enter until pt leaves facility: 12/15/18 16:47 Supervising Physician Co-Signing Physician Notes During my face to face encounter, I interviewed patient and performed a physical examination. I answered all of the patients questions and concerns. I discussed discharge plan with patient and APC. I reviewed above note and agree with it. Patient evaluated for TIA Patient will be discharged on ASA Plavix for 3 weeks. Blood pressure has been elevated. patient had stopped taking bp meds at home for about a year. Will restart CCB and Jorden inhibitor at a low dose. will recommend close follow up with PCP.
--- NOTE | 2018-12-15 16:10 | Pharmacy Report ---
Pharmacist Stroke Counseling - Date of Service December 15, 2018 - Scope: Pharmacy has been consulted to provide medication discharge counseling for this patient admitted with transient ischemic attack as per the Pharmacist Discharge Counseling for Stroke Patients Protocol. - Medications on Discharge: Home Medications Medication Instructions Recorded Confirmed levothyroxine 88 mcg PO DAILY 12/14/18 12/14/18 New Rx's Medication Instructions Recorded amlodipine 2.5 mg PO HS #30 tab 12/15/18 aspirin [Ecotrin Low Strength] 81 mg PO QAM 1 Days #1 tab 12/15/18 atorvastatin 80 mg PO QAM 30 Days #30 tab 12/15/18 clopidogrel 75 mg PO QAM 30 Days #30 tab 12/15/18 lisinopril 5 mg PO QAM #30 tab 12/15/18 - Action: The above medications, specifically ones for stroke treatment/prophylaxis, have been reviewed in detail with the patient and/or patient physician relations representative(s) prior to discharge. This includes indication, common adverse reactions, drug interactions, and medication administration. Medication counseling has been employed using the teach-back method to ensure understanding. - Outcome: The patient and/or patient physician relations representative(s) have demonstrated understanding of the medications. Please note, they are aware that the pharmacist will call them within 72 hours post-discharge to confirm that the appropriate medications are being taken and answer any further medication related questions the patient might have at that time. Contact information Individual to be contacted: patient Relationship to patient (if applicable): Phone number: [phone] Best time to call: afternoon preferred Additional comments: * I reviewed all of Kathrine's new medications in detail, including BP meds that Dr. Todd added after discussion with the patient * She was reminded she will stop the ASA after 3 weeks and continue only on Plavix as her antiplatelet therapy * She asked if any would cause constipation, as she had issues with this in the past. Reassured her that this was not a major side effect of any of the new medications. * She was a little apprehensive about starting the BP meds so I advised her to monitor BP closely at home and notify PCP if systolic starts to run consistently less than 120. * [facility] pillbox provided Thank you for allowing pharmacy to be involved in the care of this patient. Pl ease call [phone] or [phone] with any additional questions
[2018-12-16] MEDS ORDERED: ASPIRIN 81 MG ECTAB PO SCH (09:00)
--- NOTE | 2018-12-16 13:52 | Pharmacy Report ---
Pharmacist Post D/C Phone Note - Phone Note: Date of phone call: December 16, 2018. Individual with whom pharmacist spoke to: BRIAN VALADEZ The following questions were reviewed during the phone call with responses listed below each: Can you tell me the medications that you are currently taking as well as when and how you take each medication? -See Table Below When have you missed any doses of your medications? - She just picked up her prescriptions so was unable to take her Norvasc last night. Will start this tonight. What side effects are you having from your medications, specifically, the new medications you were started on? - None; I reviewed the side effects again in detail during our conversation. Brian has not found her BP cuff at home yet but will monitor BP when she does. What questions do you have about your medications? - Brian noted that her K level was low when she was in and if she needed to be on any supplements. I noted that her K was fine on discharge and the lisinopril could help to increase this. She will f/u with her PCP as well. What problems are you having obtaining your medications? - No problems. Was able to warp picker all her Rx's today. I confirmed all doses with her. When is your next appointment with your primary care doctor? - 12/[address] Hoff Additional comments: - The ASA had fallen off her med list in [facility] since this was only ordered as a single dose. I added it back today as per the discharge instructions. - I also noted that d/c instructions directed her to hold BP meds if SBP was > 110. I called Brian back to clarify this to "hold if SBP < 110". As per the Pharmacist Discharge Counseling for Stroke Patients Protocol, this phone call has been completed within 72 hours of discharge. Thank you for allowing us to be involved in the care of this patient. - Home Medications: Home Medications Medication Instructions Recorded Confirmed levothyroxine 88 mcg PO DAILY 12/14/18 12/14/18 aspirin 81 mg PO DAILY 12/16/18 12/16/18 New Rx's Medication Instructions Recorded amlodipine 2.5 mg PO HS #30 tab 12/15/18 atorvastatin 80 mg PO QAM 30 Days #30 tab 12/15/18 clopidogrel 75 mg PO QAM 30 Days #30 tab 12/15/18 lisinopril 5 mg PO QAM #30 tab 12/15/18
== END 2018-12-15 16:47 | disposition home or self-care (01) ==
LOC: ED 16:27 → 2S 16:27 → SUATTDRO 19:30 → 2S 20:14